=== PATIENT | male | born 1985 | race Caucasian/White ===

== ENCOUNTER 2021-03-08 11:34 | Emergency (ER) | payer OTHER, SELFPAY ==
--- NOTE | 2021-03-08 13:43 | PC.NURSE ---
1250- name called, no response from waiting room. 1320- called name again, no response from waiting room.
== END 2021-03-08 13:43 | disposition left against medical advice (07) ==
LOC: EXPCOLL 11:39
PROVIDERS: Emergency Provider Nurse Practitioner
DX: Z53.21 Procedure and treatment not carried out due to patient leaving prior to being seen by health care provider (principal)
CPT/HCPCS: 99199

== ENCOUNTER 2021-03-09 13:25 | Emergency (ER) | payer OTHER, SELFPAY ==
[2021-03-09 14:02] VITALS: BP 120/80; PULSE 78; RESP 20; TEMP 35.9; O2SAT 76
--- NOTE | 2021-03-09 15:17 | ED.SKABFB ---
HPI - Skin/Abscess/Foreign Bdy General Chief complaint: Skin/Abscess/Foreign Body Stated complaint: rash Time Seen by Provider: 03/09/21 15:27 Source: patient and RN notes reviewed Mode of arrival: ambulatory Limitations: no limitations History of Present Illness HPI narrative: 35-year-old male presents with concern for a rash that started approximately 2 weeks ago. Reports an itchy rash to the right inner knee area. Reports he has been using [id number] fungal cream with no relief. Reports the rash has been spreading. He denies burning or pain with the rash. Denies any other area of rash. He denies swollen lips, swollen tongue, trouble breathing. MD complaint: rash Related Data Home Medications Medication Instructions Recorded Confirmed fluoxetine mg 03/09/21 Allergies Allergy/AdvReac Type Severity Reaction Status Date / Time Penicillins Allergy Mild VOMITING Verified 09/25/18 02:03 Review of Systems Review of Systems: CONSTITUTIONAL: Denies malaise, chills, sweats, or fever. ENT: Denies swollen lips, swollen tongue CARDIOVASCULAR: Denies chest pain, palpitations, or edema. RESPIRATORY: Denies cough or dyspnea. SKIN: Reports itchy rash to the right inner knee MUSCULOSKELETAL: Denies myalgia. NEUROLOGIC: Denies numbness, weakness All systems reviewed & are unremarkable except as noted in HPI and below PMFSH Comments At time of signature, agree with nursing past medical, surgical, social and family history. There is no relevant family history pertinent to the presenting complaint Exam Narrative: GENERAL: Well-appearing, well-nourished, and in no acute distress. HEAD: Normocephalic, atraumatic. EYES: PERRLA, conjunctivae clear ENT: Mucous membranes moist. NECK: Supple. No lymphadenopathy CHEST: Clear to auscultation. No respiratory distress. HEART: Regular rate and rhythm. SKIN: Warm, dry. Confluent annular patches of erythematous plaque approximately 15 cm x 2 m the right knee NEURO: Alert and oriented x3. PSYCH: Normal mood and affect Course Course Emergency Course: Patient is aware of diagnosis, understands and agrees to treatment plan. Anticipatory guidance given. Patient agrees to follow-up as directed and is aware of reasons to seek care at the emergency department. Portions of this record may have been created with voice recognition software Vital Signs Vital signs: Vital Signs Temperature 96.7 F L 03/09/21 14:02 Pulse Rate 78 09/07/21 14:02 Respiratory Rate 20 03/09/21 14:02 Blood Pressure 120/80 03/09/21 14:02 Pulse Oximetry 76 L 03/09/21 14:02 Temperature 96.7 F L 03/09/21 14:02 Pulse Rate 78 03/09/21 14:02 Respiratory Rate 20 03/09/21 14:02 Blood Pressure 120/80 03/09/21 14:02 Pulse Oximetry 76 L 03/09/21 14:02 Reviewed. MDM - Skin/Abscess/Foreign Bdy MDM Narrative Medical decision making narrative: Does not appear at this time to be erythema multiforme, bullous, SJS, TEN; no evidence at this time to suggest RMSF, endocarditis or Lyme disease; patient looks well, nontoxic and is tolerating oral intake; no neurologic signs or symptoms; no headache, photophobia or neck pain; afebrile; appropriate for initial outpatient treatment; discussed the importance of follow-up, patient agrees; question, viral exanthema, contact dermatitis, allergic dermatitis, eczema, urticaria, tinea. No soft palate or uvula edema, no tongue, lip edema or other mucosal involvement, no respiratory compromise, no stridor, no wheezing, no wheezing, no history of syncope, no hypotension, no nausea, vomiting, or diarrhea. Instructed patient to go to nearest ER immediately for any worsening symptoms including but not limited to: fever, spreading rash, pain, sore throat, headache, dizziness, chest pain, trouble breathing, or any symptoms concerning to the patient. Critical Care Time Critical Care Time Critical Care Time: No Discharge Plan Discharge Clinical Impression: Tinea co
== END 2021-03-09 15:46 | disposition home or self-care (01) ==
PROVIDERS: Emergency Provider Nurse Practitioner
DX: B35.4 Tinea corporis (principal)
CPT/HCPCS: 99213; G0463

== ENCOUNTER 2024-03-08 19:57 | Emergency (ER) | payer BC, SELFPAY ==
--- NOTE | ~2024-03-08 | CT_ITS ---
EXAMINATION: CT abdomen pelvis wo con DATE: 03/08/2024 23:52 INDICATION: Right flank pain. TECHNIQUE: Computed tomography (CT) of the abdomen and pelvis was performed without intravenous contr ast. Automated exposure control and iterative reconstruction technique were employed. The dose-length product was 687.96 mGy-cm. COMPARISON: None. FINDINGS: The visualized portions of the lung bases are clear without pneumonia or pleural effusion. The heart size is normal. No pericardial effusion. The liver, gallbladder, pancreas, and adrenal glan ds are normal. Calcifications in the spleen are consistent with old granulomatous disease. Left kidne y is normal. There is mild right hydronephrosis. There is a 2 mm stone in proximal right ureter. Ther e are no dilated loops of bowel. The appendix is normal. There are no pathologically enlarged lymph n odes. There is no free intraperitoneal fluid. There is mild thoracic and lumbar spondylosis. IMPRESSION: 1. 2 mm stone in proximal right ureter with mild right hydronephrosis. Reviewed, dictated and finalized at location A.
[2024-03-08 20:25] VITALS: BP 139/88; PULSE 91; RESP 16; TEMP 36.6; O2SAT 100
[2024-03-08 22:39] VITALS: BP 136/80; PULSE 98; RESP 18; O2SAT 100
--- NOTE | 2024-03-08 23:08 | ED.MALEGU ---
HPI - Male Genitourinary General Chief complaint: Urogenital-Male Stated complaint: r side flank pain Time Seen by Provider: 03/08/24 22:16 History of Present Illness HPI Narrative: A 38-year-old male presenting with right flank pain. States that started shortly before arrival. States that radiates into his right lower abdomen and a little bit into his right testicle. No scrotal swelling or redness. He took some ibuprofen but then immediately threw it up. No dysuria or hematuria. No fevers. No further complaints. Related Data Home Medications Medication Instructions Recorded Confirmed fluoxetine 10 mg capsule 40 mg PO DAILY 03/09/21 03/09/24 atorvastatin 40 mg tablet 40 mg PO DAILY 03/09/24 03/09/24 Allergies Allergy/AdvReac Type Severity Reaction Status Date / Time Penicillins AdvReac Mild VOMITING Verified 03/09/24 07:31 Review of Systems Review of Systems: All systems reviewed & are unremarkable except as noted in HPI and below PMFSH Past Medical History Medical History (Updated 03/09/24 @ 21:47 by Briseida Nguyễn PA-C) Depression Hyperlipidemia Non-ST elevation CA (NSTEMI) (10/2023) Treated medically. Surgical History Surgical History (Updated 03/09/24 @ 21:47 by Briseida Nguyễn PA-C) History of tympanostomy tube placement Family History Family History Mother Enlarged heart Gallstone Grandparent Diabetes mellitus Other Diabetes mellitus Social History Social History (Updated 03/09/24 @ 14:00 by Briseida Nguyễn PA-C) Social History: Surrogate medical decision maker: Chely Irby, spouse. Code status: Full code. Smoking status: Former smoker Tobacco type: cigarettes Smoking end date: 03/09/17 Alcohol intake: never Substance use: never Do You Feel Safe in your Home?: Yes Lack of Transportation: No Lack of Food: Never True Current Housing: I Have Housing Concerned About Future Housing: No Difficulty Paying Gas/Electric Bills: No Difficulty Paying for Meds: No Currently Unemployed: No Education: Don't Know Difficulty w/ Childcare or Family Care: No Spiritual care concerns: No Exam Narrative: GENERAL: Nontoxic, uncomfortable appearing, pleasant cooperative HEAD: Normocephalic, atraumatic. EYES: PERRLA and EOMI. ENT: Grossly unremarkable NECK: Supple. CHEST: Clear to auscultation. No respiratory distress. HEART: Regular rate and rhythm ABDOMEN: Soft, nontender, nondistended; no CVA tenderness EXTREMITIES: Normal range of motion. SKIN: Warm, dry, no rash. NEURO: No focal deficits. Alert and oriented x3. PSYCH: Normal mood and affect. Course Vital Signs Vital signs: Vital Signs Temperature 97.9 F 03/08/24 20:25 Pulse Rate 91 03/08/24 20:25 Respiratory Rate 16 03/08/24 20:25 Blood Pressure 139/88 03/08/24 20:25 Pulse Oximetry 100 03/08/24 20:25 Temperature 97.9 F 03/08/24 20:25 Pulse Rate 77 03/09/24 05:12 Respiratory Rate 17 03/09/24 05:12 Blood Pressure 154/69 H 03/09/24 05:12 Pulse Oximetry 95 03/09/24 05:12 MDM - Male Genitourinary MDM Narrative Medical decision making narrative: 38-year-old male presenting with right flank pain. Vitals are stable. Exam remarkable for the above. Blood work with white count of 10.6. Remainder of blood work is unremarkable. UA with greater than 100 rbc's, no evidence of infection. CT abdomen pelvis with 2 mm right ureteral stone. Patient with improvement in his symptoms following IV pain meds and Zofran. Will try p.o. [place] and Zofran, if he continues to feel well be discharged with urology follow-up. Patient states that his symptoms have dramatically improved, his pain is down to a 1/10. He is no longer nauseated. He is tolerating p.o. intake, would like to go home which I think is reasonable. Will send in for pain meds, Zofran, Flomax. Advised PCP and urology follow-up.
[2024-03-08] MEDS: HYDROmorphone HCL INJ (*CRX) 1 MG/ML SYR IV PUSH (23:21)
[2024-03-08] MEDS: ONDANSETRON INJ 4 MG/2 ML VIAL IV PUSH (23:21)
[2024-03-08] MEDS: SODIUM CHLORIDE 0.9% IV 1,000 ML 999 ML IV CONT (23:21)
[2024-03-08 23:27] LABS: Basophils Percent Auto 0.3 % (0.2-1.2); Eosinophils Percent Auto 0.1 % (0-4.4); Hematocrit 40.6 % (42.0-52.0); Hemoglobin 14.4 g/dL (14.0-18.0); Immature Granulocyte Absolute 0.04 K/mm3 (0.00-0.031); Immature Granulocyte Percent A 0.4 % (0-0.5); Lymphocytes Absolute Auto 1.47 K/mm3 (0.9-3.2); Lymphocytes Percent Auto 13.8 % (18.3-44.2); Mean Corpuscular HGB Conc 35.5 g/dl (32-36); Mean Corpuscular Hemoglobin 30.1 pg (26-34); Mean Corpuscular Volume 84.9 fl (80-100); Mean Platelet Volume 10.3 fl (7.4-10.4); Monocytes Absolute Auto 0.5 K/mm3 (0.1-0.6); Monocytes Percent Auto 4.5 % (2.6-8.5); Neutrophils Absolute Auto 8.6 K/mm3 (1.3-6.7); Neutrophils Percent Auto 80.9 % (45.5-73.1); Platelet Count Result 309 k/mm3 (150-375); Red Blood Count 4.78 M/mm3 (4.6-6.20); Red Cell Distribution Width 12.6 % (11.5-14.5); White Blood Count 10.6 K/mm3 (4.5-10.0)
[2024-03-08 23:38] LABS: Alanine Aminotransferase 49 U/L (6-50); Albumin Level 4.5 g/dL (3.5-5.1); Alkaline Phosphatase 78 U/L (38-126); Anion Gap 15 mmol/L (4-12); Aspartate Amino Transferase 32 U/L (17-59); Bilirubin,Total 0.6 mg/dL (0.2-1.3); Blood Urea Nitrogen 12 mg/dL (9-20); Carbon Dioxide 19 mmol/L (22-30); Chloride 105 mmol/L (98-107); Estimated CRCL calculation 98 ml/min; Estimated Glomerular Filt Rate > 60; Glucose 214 mg/dL (65-110); Lipase 47 U/L (23-300); Potassium 3.9 mmol/L (3.4-5.0); Sodium 139 mmol/L (137-145)
[2024-03-08 23:42] VITALS: BP 131/73; PULSE 98; RESP 18; O2SAT 94
[2024-03-09] MEDS: HYDROmorphone HCL INJ (*CRX) 1 MG/ML SYR IV PUSH (00:21)
[2024-03-09 01:50] LABS: Add Urine Microscopic? YES; Appearance Urine Cloudy (Clear); Bacteria Urine None Seen /hpf; Bilirubin Urine Negative (Negative); Blood Urine 3+ (Negative); Color Urine Yellow (Yellow); Glucose Urine UA Trace mg/dL (Negative); Ketones Urine Trace mg/dL (Negative); Leukocyte Esterase Ur Trace LEU/UL (Negative); Mucus Urine Present /lpf; Need Manual Microscopic Reviewed; Nitrate Urine Negative (Negative); Protein Urine 1+ mg/dL (Negative); RBC Urine >100 /hpf (0-2); Specific Grav Ur 1.021 (1.001-1.035); Squamous Epithelial Cell Urine Occasional /hpf (Few)
[2024-03-09] MEDS: ONDANSETRON HCL ODT 4 MG TABLET PO (03:33)
[2024-03-09] MEDS: HYDROcodone/acetaminophen (*CRX) 5-325 MG TABLET 1 TAB PO (03:33)
[2024-03-09 05:12] VITALS: BP 154/69; PULSE 77; RESP 17; O2SAT 95
== END 2024-03-09 06:07 | disposition home or self-care (01) ==
PROVIDERS: Student in an Organized Health Care Education/Training Program; Emergency Provider Emergency Medicine
DX: N20.1 Calculus of ureter (principal); E78.5 Hyperlipidemia, unspecified; F32.A Depression, unspecified; Z87.891 Personal history of nicotine dependence
CPT/HCPCS: 36415; 74176; 80053; 81001; 83690; 85025; 87086; 87088; 96361; 96374; 96375; 96376; 99284; A9270; J1170; J2405; J7030

== ENCOUNTER 2024-03-09 07:19 | Observation (INO) | payer BC, SELFPAY ==
--- NOTE | ~2024-03-09 | CT_ITS ---
Non-contrast CT scan of the Abdomen and Pelvis Clinical indication: Right ureteral stone Technique: 2.5 mm axial scans were obtained through the abdomen and pelvis without intravenous or or al contrast. Dose reduction technique was used on this scan by utilizing automated exposure control a nd iterative reconstruction technique. The dose-length product (DLP) was 1424.54 mGy-cm. COMPARISON: 03/08/2024 Findings: Images through the lung bases reveal 7 mm noncalcified right lower lobe pulmonary nodule ( axial image 6). 3 cm 2 mm right ureter ureteral stone has passed, no longer visible on this exam. Minimal right perin ephric stranding persists. No hydronephrosis. No radiopaque stones seen currently. The liver, spleen, pancreas, gallbladder, and adrenals appear normal. There is no aortic aneurysm. There is no evidence of bowel obstruction. Images through the pelvis were performed. There is no evidence of ascites or lymphadenopathy. Urinary bladder unremarkable. No pelvic mass. Impression: Previously noted 2 mm right ureteral stone has passed since prior exam, and is no longer present. No radiopaque stones or hydronephrosis. Mild persistent right perihilar stranding. 7 mm noncalcified right lower lobe pulmonary nodule. According to Fleischner Society criteria, for a low-risk patient, recommend 6-12 month follow-up CT, then consider additional 18-[address] For a h igh-risk patient, recommend follow-up CT scans at both 6-12 months and 18-24 months. Reviewed, dictated and finalized at [facility]. Impression: Previously noted 2 mm right ureteral stone has passed since prior exam, and is no longer present. No radiopaque stones or hydronephrosis. Mild persistent righ t perihilar stranding. 7 mm noncalcified right lower lobe pulmonary nodule. According to Fleischner [facility] criteria, for a low-risk patient, recommend 6-12 month follow-up CT, then consider additional 18-[address] For a high-risk patient, recommend follow- up CT scans at both 6-12 months and 18-24 months.
[2024-03-09 07:24] VITALS: BP 153/93; PULSE 91; RESP 18; TEMP 36.6; O2SAT 100
--- NOTE | 2024-03-09 07:40 | ED.MALEGU ---
HPI - Male Genitourinary General Chief complaint: Urogenital-Male Stated complaint: right flank Time Seen by Provider: 03/09/24 07:24 History of Present Illness HPI Narrative: This is a 38-year-old male presenting for repeat evaluation after flank pain. He was recently diagnosed with a right-sided ureteral stone 2 mm last night by previous provider. Patient was trialed on oral pain medications and nausea control and he felt significantly improved during his ED visits after IV medications. He was feeling improved to the point they felt comfortable being discharged however his pain relapsed while he was going home and was not able to get his pain medications filled at his pharmacy secondary to the pain. Denies any new changes or other issues that occurred between his discharged and repeat presentation to the ED. Denies any fever, chills, nausea presently, vomiting, chest pain, shortness a breath. Describes the exact same pain that he was having earlier last night with right-sided flank pain radiating into his right groin without any testicular involvement or scrotal involvement. Related Data Home Medications Medication Instructions Recorded Confirmed fluoxetine 10 mg capsule 10 mg PO DAILY 03/09/21 03/09/24 atorvastatin 40 mg tablet 40 mg PO DAILY 03/09/24 03/09/24 Allergies Allergy/AdvReac Type Severity Reaction Status Date / Time Penicillins AdvReac Mild VOMITING Verified 03/09/24 07:31 Review of Systems Review of Systems: As reviewed above in HPI Exam Narrative: GENERAL: [Well-appearing, well-nourished, and in no acute distress.] HEAD: [Normocephalic, atraumatic.] EYES: [PERRLA and EOMI.] ENT: Nares clear, no rhinorrhea or epistaxis. Mucous membranes moist. NECK: Supple. CHEST: [Clear to auscultation. No respiratory distress.] HEART: [Regular rate and rhythm]. No murmur heard. [Normal peripheral pulses.] ABDOMEN: [Soft, nondistended], right-sided tenderness to palpation in the flank, no CVA tenderness, no inguinal tenderness or testicular pain, [No rigidity or guarding] EXTREMITIES: Normal range of motion. [No edema.] SKIN: Warm, dry, no rash. NEURO: [No focal deficits]. Alert and oriented [x3.] PSYCH: [Normal mood and affect.] Course Vital Signs Vital signs: Vital Signs Temperature 36.6 C 03/09/24 07:24 Pulse Rate 91 03/09/24 07:24 Respiratory Rate 18 03/09/24 07:24 Blood Pressure 153/93 H 03/09/24 07:24 Pulse Oximetry 100 03/09/24 07:24 Oxygen Delivery Room Air 03/09/24 07:24 Temperature 36.6 C 03/09/24 07:24 Pulse Rate 91 03/09/24 07:24 Respiratory Rate 18 03/09/24 07:24 Blood Pressure 153/93 H 03/09/24 07:24 Pulse Oximetry 100 03/09/24 07:24 Oxygen Delivery Room Air 03/09/24 07:24 MDM - Male Genitourinary MDM Narrative Medical decision making narrative: This is a 38-year-old male who was recently discharged less than 2 hours prior from this emergency department for a right-sided kidney stone. He has a 2 mm right ureteral stone with a noninfected urinalysis and unremarkable blood work on review of the EMR. Patient felt improved after IV narcotic pain medication and Zofran, but had a return of his pain after discharge. No new changes to his pain or different quality. He has a reassuring abdominal examination and repeat set of vitals. At this time we will continue hydrating him and provide IV analgesia with a mg of Dilaudid, 4 mg Zofran, 1 L likely Ringer bolus. Repeat laboratory studies were obtained to trend white count and kidney function. Consult was placed to Urology for evaluation on an inpatient basis. Patient will require admission to the hospital at this time for repeat evaluations, continued pain medication control, Urology consult. I discussed this with the hospitalist Dr. Bernstein for an observation admission and they were agreeable to the plan of care at this time. Medical Records Attestation: I reviewed the patient's medical records.
[2024-03-09] MEDS: LACTATED RINGERS 1,000 ML 999 ML IV CONT (07:42)
[2024-03-09] MEDS: HYDROmorphone HCL INJ (*CRX) 1 MG/ML SYR IV PUSH (07:42)
[2024-03-09] MEDS: ONDANSETRON INJ 4 MG/2 ML VIAL IV PUSH (07:43)
[2024-03-09] MEDS: TAMSULOSIN HCL 0.4 MG CAPSULE PO (07:43)
[2024-03-09 08:02] LABS: Basophils Percent Auto 0.2 % (0.2-1.2); Eosinophils Percent Auto 0.1 % (0-4.4); Hematocrit 39.6 % (42.0-52.0); Hemoglobin 13.8 g/dL (14.0-18.0); Immature Granulocyte Absolute 0.03 K/mm3 (0.00-0.031); Immature Granulocyte Percent A 0.3 % (0-0.5); Lymphocytes Absolute Auto 1.98 K/mm3 (0.9-3.2); Lymphocytes Percent Auto 20.1 % (18.3-44.2); Mean Corpuscular HGB Conc 34.8 g/dl (32-36); Mean Corpuscular Hemoglobin 30.4 pg (26-34); Mean Corpuscular Volume 87.2 fl (80-100); Mean Platelet Volume 10.7 fl (7.4-10.4); Monocytes Absolute Auto 0.8 K/mm3 (0.1-0.6); Monocytes Percent Auto 7.8 % (2.6-8.5); Neutrophils Percent Auto 71.5 % (45.5-73.1); Platelet Count Result 299 k/mm3 (150-375); Red Blood Count 4.54 M/mm3 (4.6-6.20); Red Cell Distribution Width 13.1 % (11.5-14.5); White Blood Count 9.8 K/mm3 (4.5-10.0)
[2024-03-09 08:10] LABS: Anion Gap 12 mmol/L (4-12); Blood Urea Nitrogen 11 mg/dL (9-20); Calcium 9.3 mg/dL (8.4-10.2); Carbon Dioxide 22 mmol/L (22-30); Chloride 107 mmol/L (98-107); Estimated CRCL calculation 125 ml/min; Estimated Glomerular Filt Rate > 60; Glucose 110 mg/dL (65-110); Sodium 141 mmol/L (137-145)
[2024-03-09 09:19] VITALS: BP 133/81; PULSE 89; RESP 14; TEMP 36.6; O2SAT 99
[2024-03-09 09:40] VITALS: BP 122/72; PULSE 83; RESP 20; TEMP 36.4; O2SAT 99
[2024-03-09 10:12] VITALS: BMI 38.9
--- NOTE | 2024-03-09 10:18 | ADMGEN ---
This patient, Chris Irby, was admitted to 3 [facility] Surg Room 331-01. Patient/family oriented to hospital policies and general routines including ID bracelet, bed and alarms, visiting hours, pain management, procedures, bathroom and other care routines, personal items, smoking policy, room service/diet, and visiting hours. Information on how to activate the Rapid Response Team has been discussed. Patient/Family are encouraged to report perceived risks to care and to ask questions if they do not understand what they are told or what they should do. Report from Ramona.
[2024-03-09] MEDS: HYDROcodone/acetaminophen (*CRX) 5-325 MG TABLET 1 TAB PO ×3 (10:36→20:40)
--- NOTE | 2024-03-09 12:30 | WPDURCON ---
Assessment and Plan Assessment and plan (1) Ureterolithiasis: Code(s): N20.1 - Calculus of ureter Status: Acute Assessment and Plan: Very small ( 2 mm) right mid ureteral stone that is highly likely to pass and not cause much problems in the process. Supportive care with hydration and analgesics today Will repeat CT scan in the morning and make a decision about any need for surgical intervention based on his pain control and stone position Urology Consult Note HPI Date Seen: 03/09/24 Requesting Physician: Smiley Bernstein MD Primary Care Provider: UNKNOWN,DOCTOR Consult Narrative Narrative: Chris Irby is a 38 year old male Without prior history of urolithiasis who was in the emergency room twice over short period of time with right flank pain and nausea. He has had no fevers or chills. Imaging demonstrates a very small 2 mm right mid ureteral stone that is producing mild hydronephrosis. At this point he is comfortable and tolerating a diet. Review of Systems Cardiovascular: Cardiovascular: Denies chest pain, Denies lightheadedness, Denies palpitations and Denies dyspnea Respiratory: Respiratory: Denies dyspnea Gastrointestinal: Gastrointestinal: Denies diarrhea, Denies nausea and Denies vomiting Genitourinary: Genitourinary: Denies hematuria and Denies dysuria Endocrine: Endocrine: Denies palpitations [facility] Family History Family History (Updated 03/09/24 @ 10:25 by Sole Olmos RN) Mother Enlarged heart Gallstone Grandparent Diabetes mellitus Other Diabetes mellitus Social History Social History Smoking status: Former smoker Tobacco type: cigarettes Smoking end date: 03/09/17 Alcohol intake: never Substance use: never Do You Feel Safe in your Home?: Yes Lack of Transportation: No Lack of Food: Never True Current Housing: I Have Housing Concerned About Future Housing: No Difficulty Paying Gas/Electric Bills: No Difficulty Paying for Meds: No Currently Unemployed: No Education: Don't Know Difficulty w/ Childcare or Family Care: No Spiritual care concerns: No Meds Home Medications and Allergies Home Medications Medication Instructions Recorded Confirmed Type fluoxetine 10 mg capsule 40 mg PO DAILY 03/09/21 03/09/24 History atorvastatin 40 mg tablet 40 mg PO DAILY 03/09/24 03/09/24 History ondansetron 4 mg disintegrating 4 mg PO Q8H PRN nausea and 03/09/24 03/09/24 Rx tablet vomiting #14 tabs oxycodone-acetaminophen 5 mg-325 1 tablet PO Q6H PRN pain #10 tabs 03/09/24 03/09/24 Rx mg tablet (Percocet) tamsulosin 0.4 mg capsule (Flomax) 0.4 mg PO HS #14 caps 03/09/24 03/09/24 Rx Allergies Allergy/AdvReac Type Severity Reaction Status Date / Time Penicillins AdvReac Mild VOMITING Verified 03/09/24 07:31 Vital Signs Vital Signs - 24 hr 03/09/24 07:24 03/09/24 09:19 Temperature 97.8 F 97.9 F Pulse Rate 91 89 Respiratory Rate 18 14 Blood Pressure 153/93 H 133/81 Pulse Oximetry 100 99 Oxygen Delivery Room Air Exam Const: General: no acute distress Resp: Effort & Inspection: normal respiratory effort GI: Inspection: non-distended GI Palp: No abdominal tenderness and No Guarding due to palpation present (GI) Auscultation: normal bowel sounds Results Labs 03/09/24 07:44 03/09/24 07:44 Labs: Short CBC 03/09/24 Range/Units 07:44 WBC 9.8 (4.5-10.0) K/mm3 Hgb 13.8 L (14.0-18.0) g/dL Hct 39.6 L (42.0-52.0) % Plt Count 299 (150-375) k/mm3 BMP 03/09/24 07:44 Sodium 141 Potassium 4.0 Chloride 107 Carbon Dioxide 22 BUN 11 Creatinine 0.90 Glucose 110 Calcium 9.3
--- NOTE | 2024-03-09 13:55 | PM.IMHP ---
H&P: HPI History of Present Illness Date/Time: 03/09/24 13:30 Chief Complaint: Right flank pain. Narrative: This is a pleasant 38-year-old male with history of NSTEMI in October 2023, hyperlipidemia, and depression who presented to the emergency department via private vehicle for evaluation of right flank pain. The patient provides the following history. He was seen in the ED last night for evaluation of right-sided colicky pain and was found to have a 2 mm stone the proximal right ureter with mild right hydronephrosis. He was discharged with prescriptions for Flomax, Percocet, and Zofran which he was unable to fill given the late hour. He has been taking ibuprofen without much pain relief. He has not had a fever and denies dysuria and hematuria. He was afebrile on arrival with stable vital signs. Labs were without significant findings. He was given 1 L lactated Ringer's, hydromorphone 1 mg IV, and ondansetron 4 mg IV. He is being admitted in this setting for supportive care due to ongoing pain. Review of Systems Review of Systems: 12 systems were reviewed and are negative except for as per HPI. [facility] Past Medical History Medical History (Updated 03/09/24 @ 21:47 by Briseida Nguyễn PA-C) Depression Hyperlipidemia Non-ST elevation [place] (NSTEMI) (10/2023) Treated medically. Surgical History Surgical History (Updated 03/09/24 @ 21:47 by Briseida Nguyễn PA-C) History of tympanostomy tube placement Family History Family History Mother Enlarged heart Gallstone Grandparent Diabetes mellitus Other Diabetes mellitus Social History Social History (Updated 03/09/24 @ 14:00 by Briseida Nguyễn PA-C) Social History: Surrogate medical decision maker: Chely Mannymell, spouse. Code status: Full code. Smoking status: Former smoker Tobacco type: cigarettes Smoking end date: 03/09/17 Alcohol intake: never Substance use: never Do You Feel Safe in your Home?: Yes Lack of Transportation: No Lack of Food: Never True Current Housing: I Have Housing Concerned About Future Housing: No Difficulty Paying Gas/Electric Bills: No Difficulty Paying for Meds: No Currently Unemployed: No Education: Don't Know Difficulty w/ Childcare or Family Care: No Spiritual care concerns: No Meds Home Medications and Allergies Home Medications Medication Instructions Recorded Confirmed Type fluoxetine 10 mg capsule 40 mg PO DAILY 03/09/21 03/09/24 History atorvastatin 40 mg tablet 40 mg PO DAILY 03/09/24 03/09/24 History ondansetron 4 mg disintegrating 4 mg PO Q8H PRN nausea and 03/09/24 03/09/24 Rx tablet vomiting #14 tabs oxycodone-acetaminophen 5 mg-325 1 tablet PO Q6H PRN pain #10 tabs 03/09/24 03/09/24 Rx mg tablet (Percocet) tamsulosin 0.4 mg capsule (Flomax) 0.4 mg PO HS #14 caps 03/09/24 03/09/24 Rx Allergies Allergy/AdvReac Type Severity Reaction Status Date / Time Penicillins AdvReac Mild VOMITING Verified 03/09/24 07:31 Vital Signs Vital Signs - 24 hr 03/09/24 07:24 03/09/24 09:19 Temperature 97.8 F 97.9 F Pulse Rate 91 89 Respiratory Rate 18 14 Blood Pressure 153/93 H 133/81 Pulse Oximetry 100 99 Oxygen Delivery Room Air Exam Narrative: General: Well-developed, nontoxic-appearing male sitting up in bed. Weight: 20.1 kg. BMI: 30.9. HEENT: PERRL, EOMI. Sclera anicteric. Oral mucosa moist. Neck: Supple. Respiratory: Lungs are clear to auscultation bilaterally. Cardiovascular: Regular rate and rhythm with S1-S2. Gastrointestinal: At the time my evaluation his abdomen is soft, nontender, and nondistended with positive bowel sounds. Skin: Warm and dry. Extremities: No cyanosis, clubbing, or edema. Radial and pedal pulses intact. Neurological: Alert. Cranial nerves 2-12 are grossly intact. No gross focal deficits to casual conversation. Psychiatric: Pleasant and cooperative with normal
[2024-03-09 14:00] VITALS: BP 135/71; PULSE 86; RESP 20; TEMP 36.2; O2SAT 100
[2024-03-09] MEDS: LACTATED RINGERS 1,000 ML 100 ML IV CONT (14:10)
[2024-03-09 20:48] VITALS: BP 134/75; PULSE 87; RESP 20; TEMP 37.1; O2SAT 98
[2024-03-10] MEDS: LACTATED RINGERS 1,000 ML 100 ML IV CONT (00:12)
[2024-03-10 06:00] VITALS: BP 131/64; PULSE 84; RESP 16; TEMP 36.9; O2SAT 99
[2024-03-10 06:29] LABS: Anion Gap 3 mmol/L (4-12); Blood Urea Nitrogen 7 mg/dL (9-20); Calcium 8.7 mg/dL (8.4-10.2); Carbon Dioxide 32 mmol/L (22-30); Chloride 104 mmol/L (98-107); Estimated CRCL calculation 130 ml/min; Estimated Glomerular Filt Rate > 60; Glucose 103 mg/dL (65-110); Potassium 4.2 mmol/L (3.4-5.0); Sodium 139 mmol/L (137-145)
--- NOTE | 2024-03-10 07:31 | PM.IMPN ---
Progress Note: A&P Assessment and Plan (1) Right ureteral calculus: Code(s): N20.1 - Calculus of ureter Status: Acute Assessment and Plan: Patient presents with complains of right flank pain. CT abdomen and pelvis shows proximal right ureter with mild right hydronephrosis. IVF with LR at 100 ml per hour NPO for likely ureteral stent and stone extraction Strain all urine Flomax given in the ED Zofran and Dilaudid as needed Urology consulted (2) Hyperlipidemia: Code(s): E78.5 - Hyperlipidemia, unspecified Status: Acute Assessment and Plan: History of NSTEMI in October of this year. Continue Atorvastatin 40 mg daily. Plan DVT prophylaxis: SCD Glycemic control: NA Code Status: Full Code Disposition: 38 year old male here with right flank pain and found to have a small 2mm right ureteral stone with mild hydronephrosis. He was admitted for pain control with IV fluids with Urology consult. Expect this stone to pass on it's own. Urology has ordered CT scan to assess stones location and depending on the patient's ongoing pain, may go for intervention. Medication reconciliation obtained via the following: Nurse completed on admission The file time of this note does not necessarily represent the time the patient was seen. Subjective Date/time seen: 03/10/24 07:31 Interval history: This is a pleasant 38-year-old male with history of NSTEMI in October 2023, hyperlipidemia, and depression who presented to the emergency department via private vehicle for evaluation of right flank pain. The patient provides the following history. He was seen in the ED last night for evaluation of right-sided colicky pain and was found to have a 2 mm stone the proximal right ureter with mild right hydronephrosis. 03/10: Review of Systems Review of Systems: 12 systems were reviewed and are negative except for as per HPI. All systems reviewed & are unremarkable except as noted in HPI and below Exam Narrative: General: well appearing, appears stated age. HEENT: normocephalic, atraumatic. Mucous membranes moist. EOMI, PERRLA, bilateral sclera anicteric, no conjunctival injection. Neck supple without JVD, lymphadenopathy, or bruit. Respiratory: clear to auscultation bilaterally. No rales/rhonic/wheezes. Cardiovascular: Regular rate and rhythm, normal S1-S2 upon auscultation. No murmurs, rubs, or clicks. PMI is nondisplaced, capillary refill less than 3 second. Abdomen: Soft, round, no pulsatile masses, nondistended and nontender. No rebound, no guarding. No CVA tenderness, no hepatosplenomegaly. Bowel sounds present to all four quadrants. No high pitch or tinkling sounds, resonant to percussion. Extremities: No cyanosis, clubbing, or edema present. Pulses are palpable 2/2. Active ROM to all four extremities. Neuro: Alert and orientated x 4. PERRLA. Cranial nerves 2-12 intact without focal deficit. Skin: Warm, dry, and intact, without rash, erythema, or lesion. Lines: Incisions: Psych: pleasant, cooperative, normal speech, normal affect, no hallucinations, no dysarthria Objective Data Vital Signs Vital Signs: Vital Signs - 24 hr 03/09/24 09:19 03/09/24 14:00 03/09/24 09:40 Temperature 97.9 F 97.2 F L 97.6 F Pulse Rate 89 86 83 Respiratory Rate 14 20 20 Blood Pressure 133/81 135/71 122/72 Pulse Oximetry 99 100 99 Oxygen Delivery 03/09/24 20:48 03/09/24 20:42 03/10/24 06:00 Temperature 98.8 F 98.5 F Pulse Rate 87 84 Respiratory Rate 20 16 Blood Pressure 134/75 131/64 Pulse Oximetry 98 99 Oxygen Delivery Room Air Intake/Output Intake/Output: Intake & Output 03/07/24 03/08/24 03/09/24 03/10/24 23:59 23:59 23:59 23:59 Intake Total 2340 1000 Balance 2340 1000 Meds/Results Medications: Active Medications Generic Name Dose Route Start L
[2024-03-10] MEDS: ATORVASTATIN 40 MG TABLET PO (08:10)
[2024-03-10] MEDS: FLUoxetine HCL 20 MG CAPSULE 40 MG PO (08:10)
[2024-03-10] MEDS: ACETAMINOPHEN 325 MG TABLET 650 MG PO (08:15)
--- NOTE | 2024-03-10 09:58 | WPDUROPN2 ---
Progress Note: A&P Assessment and Plan (1) Right ureteral calculus: Code(s): N20.1 - Calculus of ureter Status: Acute Assessment and Plan: Right ureteral stone his spontaneously passed. Patient can be discharged. No need for follow-up with us in Subjective Subjective Date/Time Seen: 03/10/24 09:58 Interval history: Ureteral stone spontaneously passed this morning. He is feeling well Review of Systems Cardiovascular: Cardiovascular: Denies chest pain, Denies lightheadedness, Denies palpitations and Denies dyspnea Respiratory: Respiratory: Denies dyspnea Gastrointestinal: Gastrointestinal: Denies diarrhea, Denies nausea and Denies vomiting Genitourinary: Genitourinary: Denies hematuria and Denies dysuria Endocrine: Endocrine: Denies palpitations Exam Const: General: no acute distress Resp: Effort & Inspection: normal respiratory effort GI: Inspection: non-distended GI Palp: No abdominal tenderness and No Guarding due to palpation present (GI) Auscultation: normal bowel sounds Objective Data Vital Signs Vital Signs: Vital Signs - 24 hr 03/09/24 14:00 03/09/24 20:48 03/09/24 20:42 Temperature 97.2 F L 98.8 F Pulse Rate 86 87 Respiratory Rate 20 20 Blood Pressure 135/71 134/75 Pulse Oximetry 100 98 Oxygen Delivery Room Air 03/10/24 06:00 Temperature 98.5 F Pulse Rate 84 Respiratory Rate 16 Blood Pressure 131/64 Pulse Oximetry 99 Oxygen Delivery Intake/Output Intake/Output: Intake & Output 03/07/24 03/08/24 03/09/24 03/10/24 23:59 23:59 23:59 23:59 Intake Total 2340 1000 Balance 2340 1000 Meds/Results Medications: Active Medications Generic Name Dose Route Start Last Admin Trade Name Freq PRN Reason Stop Dose Admin Acetaminophen 650 mg 03/09/24 14:04 03/10/24 08:15 Acetaminophen 325 Mg Tablet PO 650 mg Q6H PRN Administration Mild Pain (1-3) or Fever Hydrocodone Bitart/Acetaminophen 1 tab 03/09/24 07:37 03/09/24 20:40 Hydrocodone/Acetaminophen (*Crx) 5-325 Mg Tablet PO 1 tab Q4H PRN Administration Pain Rated 4-6 Atorvastatin Calcium 40 mg 03/10/24 09:00 03/10/24 08:10 Atorvastatin 40 Mg Tablet PO 40 mg DAILY MICKEY Administration Fluoxetine HCl 40 mg 03/10/24 09:00 03/10/24 08:10 Fluoxetine Hcl 20 Mg Capsule PO 40 mg DAILY MICKEY Administration Hydromorphone HCl 0.5 mg 03/09/24 14:04 Hydromorphone Hcl Inj (*Crx) 1 Mg/Ml Syr IV PUSH Q3H PRN Pain Rated 7-10 Lactated Ringer's 1,000 mls @ 100 mls/hr 03/09/24 14:05 03/10/24 00:12 Lr - Lactated Ringers Iv IV CONT 100 mls/hr .Q10H MICKEY Administration Ondansetron HCl 4 mg 03/09/24 07:37 Ondansetron Inj 4 Mg/2 Ml Vial IV PUSH Q4H PRN Nausea Radiology Results: ITS Impressions Abdomen/Pelvis CT 03/10/24 07:46 Impression: Previously noted 2 mm right ureteral stone has passed since prior exam, and is no longer present. No radiopaque stones or hydronephrosis. Mild persistent right perihilar stranding. 7 mm noncalcified right lower lobe pulmonary nodule. According to Fleischner Society criteria, for a low-risk patient, recommend 6-12 month follow-up CT, then consider additional 18-[address] For a high-risk patient, recommend follow-up CT scans at both 6-12 months and 18-24 months. Labs Labs: Laboratory Results - last 24 hr 03/10/24 05:55 Sodium 139 Potassium 4.2 Chloride 104 Carbon Dioxide 32 H Anion Gap 3 L BUN 7 L Creatinine 0.90 Estim Creat Clear Calc 130 Estimated GFR > 60 Glucose 103 Calcium 8.7
--- NOTE | 2024-03-10 16:08 | PM.DS ---
DS: Admitting Diagnosis Discharge Date 03/10/24 Admitting Diagnosis Flank pain DS: Discharge Diagnosis Discharge Diagnosis (1) Right ureteral calculus: Code(s): N20.1 - Calculus of ureter Status: Acute (2) Hyperlipidemia: Code(s): E78.5 - Hyperlipidemia, unspecified Status: Acute Plan The patient presented to the emergency department evaluation of worsening, colicky right-sided flank pain as detailed in HPI. Labs, imaging, EKG, and all reports were personally reviewed. CT of the abdomen and pelvis obtained yesterday evening showed a small 2 mm right ureteral stone with mild hydronephrosis. This is small enough that it should pass on its own however due to ongoing pain he is being admitted for supportive care. Analgesics and antiemetics are available as needed. Strain all urine. Vital signs were reviewed and they are stable. His home medications will be reviewed and resumed as appropriate. Findings and treatment plan were discussed with the patient. Questions were solicited and answered to satisfaction. DS: Summary Hospital Course Reason for hospitalization: Kidney stone Hospital Course: This is a pleasant 38-year-old male with history of NSTEMI in October 2023, hyperlipidemia, and depression who presented to the emergency department via private vehicle for evaluation of right flank pain. The patient provides the following history. He was seen in the ED last night for evaluation of right-sided colicky pain and was found to have a 2 mm stone the proximal right ureter with mild right hydronephrosis. He was discharged with prescriptions for Flomax, Percocet, and Zofran which he was unable to fill given the late hour. He has been taking ibuprofen without much pain relief. He has not had a fever and denies dysuria and hematuria. He was afebrile on arrival with stable vital signs. Labs were without significant findings. He was given 1 L lactated Ringer's, hydromorphone 1 mg IV, and ondansetron 4 mg IV. He is being admitted in this setting for supportive care due to ongoing pain. Patient was able to pass the kidney stone without intervention. He is no longer having abdominal pain, nausea, vomiting, and is tolerating a diet. He is being discharged in stable condition with follow up to his PCP as needed. Time Spent with Patient Time attestation: Total time spent providing and/or coordinating discharge services:65 Exam Narrative: General: well appearing, appears stated age. HEENT: normocephalic, atraumatic. Mucous membranes moist. EOMI, PERRLA, bilateral sclera anicteric, no conjunctival injection. Neck supple without JVD, lymphadenopathy, or bruit. Respiratory: clear to auscultation bilaterally. No rales/rhonic/wheezes. Cardiovascular: Regular rate and rhythm, normal S1-S2 upon auscultation. No murmurs, rubs, or clicks. PMI is nondisplaced, capillary refill less than 3 second. Abdomen: Soft, round, no pulsatile masses, nondistended and nontender. No rebound, no guarding. No CVA tenderness, no hepatosplenomegaly. Bowel sounds present to all four quadrants. No high pitch or tinkling sounds, resonant to percussion. Extremities: No cyanosis, clubbing, or edema present. Pulses are palpable 2/2. Active ROM to all four extremities. Neuro: Alert and orientated x 4. PERRLA. Cranial nerves 2-12 intact without focal deficit. Skin: Warm, dry, and intact, without rash, erythema, or lesion. Lines: Incisions: Psych: pleasant, cooperative, normal speech, normal affect, no hallucinations, no dysarthria DS: Data Data Completed and Pending Labs on day of discharge: Labs from last 24 hours 03/10/24 05:55 Sodium 139 Potassium 4.2 Chloride 104 Carbon Dioxide 32 H Anion Gap 3 L BUN 7 L Creatinine 0.90 Estim Creat Clear Calc 130 Estimated GFR > 60 Glucose 103 Calcium 8.7 Discharge Plan Discharge Attending physician on discharge: Gonsalo García Consulting providers: Jonathon Pierson
== END 2024-03-10 10:50 | disposition home or self-care (01) ==
LOC: ANHED 07:51 → ANH3MEDSUR 15:26
PROVIDERS: Physician Assistant; Admitting Provider Internal Medicine; Emergency Provider Student in an Organized Health Care Education/Training Program; Visit Provider Nurse Practitioner Acute Care
DX: N13.2 Hydronephrosis with renal and ureteral calculous obstruction (principal); E78.5 Hyperlipidemia, unspecified; I25.2 Old myocardial infarction; F32.A Depression, unspecified; Z87.891 Personal history of nicotine dependence
CPT/HCPCS: 36415; 74176; 80048; 85025; 87086; 96361; 96374; 96375; 96376; 99285; A9270; G0378; J1170; J2405; J7120